=== PATIENT | female | born 1985 | race Caucasian/White ===

== ENCOUNTER 2019-07-01 05:24 | Inpatient (IN) | payer BC, OTHER ==
[2019-07-01] MEDS ORDERED: Lactated Ringers 1,000 ML IV SCH (05:30)
[2019-07-01] MEDS ORDERED: Sodium Chloride 0.9% 10 ML Syringe FLUSH PRN (05:30)
[2019-07-01] MEDS ORDERED: Nalbuphine 10 MG/1 ML Vial IVPUSH PRN (05:30)
[2019-07-01] MEDS ORDERED: Citric Acid/Sodium Citrate Solution 30 ML Cup PO ONE (06:00)
[2019-07-01] MEDS ORDERED: Metoclopramide 10 MG/2 ML SDV IVPUSH ONE (06:00)
[2019-07-01] MEDS ORDERED: ceFAZolin 2 GM in Premix Bag 1 BAG IV ONE (07:15)
--- NOTE | 2019-07-01 07:18 | PCM.PREANE ---
Preanesthetic Assessment - Anesthesia/Transfusion/Family Hx Anesthesia History: Prior Anesthesia Without Reaction Transfusion History: No Prior Transfusion(s) Intubation History: Unknown - Review of Systems General: No Symptoms Pulmonary: Other (sinus congestion) Gastrointestinal: No Symptoms Other: Reports: None - Physical Assessment NPO Status Date: 06/30/19 NPO Status Time: 23:57 Height: 1.73 m Weight: 97.522 kg ASA Class: 2 Mental Status: Alert & Oriented x3 Airway Class: Mallampati = 3 Dentition: Reports: Normal Dentition Thyro-Mental Finger Breadths: 3 Mouth Opening Finger Breadths: 3 ROM/Head Extension: Full Lungs: Clear to Auscultation - Lab Values: Laboratory Last Values WBC 6.97 K/mm3 (3.98-10.04) 07/01/19 05:45 RBC 4.05 M/mm3 (3.98-5.22) 07/01/19 05:45 Hgb 12.3 gm/dl (11.2-15.7) 07/01/19 05:45 Hct 36.6 % (34.1-44.9) 07/01/19 05:45 MCV 90.4 fl (79.4-94.8) 07/01/19 05:45 MCH 30.4 pg (25.6-32.2) 07/01/19 05:45 MCHC 33.6 g/dl (32.2-35.5) 07/01/19 05:45 RDW Std Deviation 45.1 fL (36.4-46.3) 07/01/19 05:45 Plt Count 115 K/mm3 (182-369) L 07/01/19 05:45 MPV 12.2 fl (9.4-12.3) 07/01/19 05:45 Neut % (Auto) 70.3 % (34.0-71.1) 07/01/19 05:45 Lymph % (Auto) 19.7 % (19.3-51.7) 07/01/19 05:45 [place] % (Auto) 8.0 % (4.7-12.5) 07/01/19 05:45 Eos % (Auto) 1.4 (0.7-5.8) 07/01/19 05:45 Baso % (Auto) 0.3 % (0.1-1.2) 07/01/19 05:45 Neut # (Auto) 4.90 K/mm3 (1.56-6.13) 07/01/19 05:45 Lymph # (Auto) 1.37 K/mm3 (1.18-3.74) 07/01/19 05:45 [place] # (Auto) 0.56 K/mm3 (0.24-0.36) H 07/01/19 05:45 Eos # (Auto) 0.10 K/mm3 (0.04-0.36) 07/01/19 05:45 Baso # (Auto) 0.02 K/mm3 (0.01-0.08) 07/01/19 05:45 - Allergies Allergies/Adverse Reactions: Allergies Allergy/AdvReac Type Severity Reaction Status Date / Time No Known Allergies Allergy Verified 07/19/18 09:01 - Blood Blood Available: Yes Product(s) Available: PRBC - Acknowledgements Anesthesia Type Planned: Spinal Pt an Appropriate Candidate for the Planned Anesthesia: Yes Alternatives and Risks of Anesthesia Discussed w Pt/Guardian: Yes Pt/Guardian Understands and Agrees with Anesthesia Plan: Yes PreAnesthesia Questionnaire - Past Surgical History GI Surgical History: Reports: Appendectomy Musculoskeletal Surgical History: Reports: Other (See Below) (cyst removal from leg) - HOME MEDS Home Medications: Home Meds Ascorbic Acid [Vitamin C] 250 mg PO DAILY 07/01/19 [History] Cholecalciferol (Vitamin D3) [Vitamin D3] 1,000 unit PO DAILY 07/01/19 [History] Folic Acid 0.4 mg PO 07/01/19 [History] Magnesium Oxide 250 mg PO 07/01/19 [History] ,Calc.40/Iron/Folate 1 [Pnv-Select] 1 tab PO DAILY 07/01/19 [History] - CURRENT (IN HOUSE) MEDS Current Meds: Current Medications Cefazolin Sodium/Dextrose 2 gm (/ Premix) 50 mls @ 100 mls/hr IV ONETIME ONE Stop: 07/01/19 07:44 Lactated Ringer's (Ringers, Lactated) 1,000 mls @ 125 mls/hr IV ASDIRECTED IVY Oxytocin/Lactated Ringer's (Pitocin In Lr 10 Units/1,000 Ml) 10 unit in 1,000 mls @ 100 mls/hr IV ASDIRECTED IVY; Protocol Nalbuphine HCl (Nubain) 10 mg IVPUSH Q2H PRN PRN Reason: Pain Sodium Chloride (Saline Flush) 10 ml FLUSH ASDIRECTED PRN PRN Reason: Keep Vein Open Discontinued Medications Citric Acid/Sodium Citrate (Bicitra Solution) 30 ml PO ONETIME ONE Stop: 07/01/19 06:01 Last Admin: 07/01/19 06:37 Dose: 30 ml Metoclopramide HCl (Reglan) 10 mg IVPUSH ONETIME ONE Stop: 07/01/19 06:01
--- NOTE | 2019-07-01 07:24 | PCM.OPNOTE ---
- General Post-Op/Procedure Note Date of Surgery/Procedure: 07/01/19 Operative Procedure(s): Repeat Findings: Moderate amount of scar tissue between the fascia and rectus muscles. Minimal scarring between bladder and lower uterine segment, but extremely thin lower uterine segment seen. Would recommend early delivery if has additional . Baby boy in a vertex presentation APGARS of 9 & 9. Weight of 7 lbs 5 oz. Normal appearance otherwise of uterus, fallopian tubes and ovaries. Pre Op Diagnosis: 39 1/7 wks. Hx of x2 Post-Op Diagnosis: Same Anesthesia Technique: Spinal Primary Surgeon: Roselia Leija Secondary Surgeon: Rowena Carolina Anesthesia Provider: Harry Garcia Reason Licensed Optical Dispenser Was Necessary: BMI, speed/safety of procedure Pathology: Cord blood collected. Placenta discarded. Fluid Replacement, Intraop: 2,000 Output, Urine Amount: 200 EBL in mLs: 500 Complications: None Condition: Good Free Text/Narrative:: The risks, benefits, indications, potential complications, and alternatives were explained to the patient and informed consent obtained. After induction of anesthesia, the patient was placed in a supine position and then draped and prepped in the usual sterile manner. A Pfannenstiel incision was made and carried down through the subcutaneous tissue to the fascia. Fascial incision was made and extended transversely. The fascia was from the underlying rectus tissue superiorly and inferiorly. The peritoneum was identified and entered. Peritoneal incision was extended longitudinally. The utero-vesical peritoneal reflection was incised transversely and the bladder flap was bluntly freed from the lower uterine segment. A low transverse uterine incision was made sharply with a scalpel and extended bluntly in a cephalocaudad direction. A baby boy was delivered from a vertex presentation with APGARS as above. After the umbilical cord was clamped and cut cord blood was obtained for evaluation. The placenta was removed intact and appeared normal. The uterus was exteriorized and cleared of clots. The uterine outline, tubes and ovaries appeared normal. The uterine incision was closed with running locked sutures of 0 Vicryl. Hemostasis noted. The uterus was then placed back into the abdomen. The infracolic gutters were cleared of blood clots. The fascia was then reapproximated with running sutures of 0 Vicryl. The subcutaneous tissue was irrigated with sterile warm normal saline, hemostasis obtained with cautery. This layer was also closed with a running 0 vicryl suture. The skin was reapproximated with running Subcuticular 4-0 monocryl sutures. Instrument, sponge, and needle counts were correct prior the abdominal closure and at the conclusion of the case.
[2019-07-01] MEDS ORDERED: Oxytocin/Lactated Ringers 10 UNIT/1,000 ML BAG IV SCH (07:30)
[2019-07-01] MEDS ORDERED: Morphine PF 10 MG/10 ML SDV ONE (07:41)
[2019-07-01] MEDS ORDERED: ceFAZolin 1 GM Vial ONE (08:14)
[2019-07-01] MEDS ORDERED: Oxytocin 10 Units/1 ML SDV ONE ×2 (08:17→08:37)
[2019-07-01] MEDS ORDERED: Lactated Ringers 1,000 ML ONE ×2 (08:26→08:46)
[2019-07-01] MEDS ORDERED: Phenylephrine/Normal Saline 100 MCG/ML 10 ML Syringe ONE (08:30)
[2019-07-01] MEDS ORDERED: Ketorolac 15 MG/ML SDV ONE (08:40)
[2019-07-01] MEDS ORDERED: fentaNYL 100 MCG/2 ML SDV IVPUSH PRN (08:47)
[2019-07-01] MEDS ORDERED: Ondansetron 4 MG/2 ML SDV IVPUSH PRN (08:47)
[2019-07-01] MEDS ORDERED: diphenhydrAMINE 50 MG/ML SDV IVPUSH PRN ×2 (08:47→09:50)
--- NOTE | 2019-07-01 09:11 | PCM.POSTAN ---
POST ANESTHESIA ASSESSMENT - MENTAL STATUS Mental Status: Alert, Oriented - VITAL SIGNS Vital Signs: Last Vital Signs Temp 98.1 F 07/01/19 09:00 Pulse 67 07/01/19 09:00 Resp 11 L 07/01/19 09:00 BP 101/59 L 07/01/19 09:00 Pulse Ox 98 07/01/19 09:00 - RESPIRATORY Respiratory Status: Respiratory Rate WNL, Airway Patent, O2 Saturation Stable - CARDIOVASCULAR CV Status: Pulse Rate WNL, Blood Pressure Stable - GASTROINTESTINAL GI Status: No Symptoms - PAIN Pain Score: 0 (post SAB) - POST OP HYDRATION Hydration Status: Adequate & Stable
[2019-07-01] MEDS ORDERED: Naloxone 0.4 MG/ML SDV IVPUSH PRN (09:50)
[2019-07-01] MEDS ORDERED: ePHEDrine 50 MG/ML SDV IVPUSH PRN (09:50)
[2019-07-01] MEDS ORDERED: Docusate Sodium 100 MG Cap PO PRN (09:50)
[2019-07-01] MEDS ORDERED: Dextrose 5%-Lactated Ringers 1,000 ML IV SCH (09:50)
[2019-07-01] MEDS ORDERED: Sennosides 8.6 MG Tab PO PRN (09:50)
[2019-07-01] MEDS ORDERED: Acetaminophen/oxyCODONE 325-5 MG Tab PO PRN (09:50)
[2019-07-01] MEDS ORDERED: Ondansetron 4 MG/2 ML SDV IV PRN (09:50)
[2019-07-01] MEDS ORDERED: LORazepam 1 MG Tab PO SCH (12:45)
[2019-07-01] MEDS ORDERED: diphenhydrAMINE 25 MG Cap PO PRN (13:49)
[2019-07-01] MEDS: Ketorolac 30 MG/ML SDV IVPUSH SCH ×2 (15:13→20:46)
[2019-07-01] MEDS: hydrOXYzine HCl 50 MG Tab PO PRN (20:46)
[2019-07-02] MEDS: Ketorolac 30 MG/ML SDV IVPUSH SCH (02:33)
[2019-07-02] MEDS: hydrOXYzine HCl 50 MG Tab PO PRN (05:59)
[2019-07-02] MEDS: Ibuprofen 600 MG Tab PO PRN ×2 (11:37→17:52)
--- NOTE | 2019-07-02 11:52 | PCM.PN ---
- General Info Date of Service: 07/02/19 Functional Status: Reports: Pain Controlled - Review of Systems General: Reports: No Symptoms HEENT: Reports: No Symptoms Pulmonary: Reports: No Symptoms Cardiovascular: Reports: No Symptoms Gastrointestinal: Reports: No Symptoms Genitourinary: Reports: No Symptoms Musculoskeletal: Reports: No Symptoms Skin: Reports: No Symptoms Neurological: Reports: No Symptoms Psychiatric: Reports: No Symptoms - Patient Data Vitals - Most Recent: Last Vital Signs Temp 98.1 F 07/02/19 09:56 Pulse 83 07/02/19 09:56 Resp 14 07/02/19 09:56 BP 106/66 07/02/19 09:56 Pulse Ox 96 07/02/19 09:56 Weight - Most Recent: 215 lb I&O - Last 24 Hours: Intake & Output 07/01/19 07/02/19 07/02/19 22:59 06:59 14:59 Intake Total 2360 300 Output Total 3800 3100 500 Balance -1440 -3100 -200 Lab Results Last 24 Hours: Laboratory Results - last 24 hr 07/01/19 07/02/19 Range/Units 05:45 05:45 WBC 7.31 (3.98-10.04) K/mm3 RBC 3.69 L (3.98-5.22) M/mm3 Hgb 11.0 L (11.2-15.7) gm/dl Hct 33.4 L (34.1-44.9) % MCV 90.5 (79.4-94.8) fl MCH 29.8 (25.6-32.2) pg MCHC 32.9 (32.2-35.5) g/dl RDW Std Deviation 44.5 (36.4-46.3) fL Plt Count 96 L (182-369) K/mm3 MPV 12.2 (9.4-12.3) fl RPR Non-reactive (NONREACTIVE) Med Orders - Current: Current Medications Diphenhydramine HCl (Benadryl) 50 mg PO Q6H PRN PRN Reason: Itching Docusate Sodium (Colace) 100 mg PO Q12H PRN PRN Reason: Constipation Last Admin: 07/02/19 09:11 Dose: 100 mg Ephedrine Sulfate (Ephedrine Sulfate) 5 mg IVPUSH SEECOMMENT PRN PRN Reason: Other Hydroxyzine HCl (Atarax) 50 mg PO Q8H PRN PRN Reason: Itching Last Admin: 07/02/19 05:59 Dose: 50 mg Ibuprofen (Motrin) 600 mg PO Q6H PRN PRN Reason: mild pain or fever Last Admin: 07/02/19 11:37 Dose: 600 mg Naloxone HCl (Narcan) 0.1 mg IVPUSH SEECOMMENT PRN PRN Reason: Respiratory Depression Ondansetron HCl (Zofran) 4 mg IV Q8H PRN PRN Reason: Nausea/Vomiting Oxycodone/Acetaminophen (Percocet 325-5 Mg) 2 tab PO Q4H PRN PRN Reason: Pain (severe 7-10) Last Admin: 07/02/19 09:11 Dose: 2 tab Oxycodone/Acetaminophen (Percocet 325-5 Mg) 1 tab PO Q4H PRN PRN Reason: Pain (moderate 4-6) Senna (Senna) 8.6 mg PO BEDTIME PRN PRN Reason: Constipation Discontinued Medications Cefazolin Sodium (Ancef) Confirm Administered Dose 2 gm .ROUTE .STK-MED ONE Stop: 07/01/19 08:15 Citric Acid/Sodium Citrate (Bicitra Solution) 30 ml PO ONETIME ONE Stop: 07/01/19 06:01 Last Admin: 07/01/19 06:37 Dose: 30 ml Diphenhydramine HCl (Benadryl) 25 mg IVPUSH Q6H PRN PRN Reason: Pruritis Last Admin: 07/01/19 11:57 Dose: 25 mg Diphenhydramine HCl (Benadryl) 25 mg IVPUSH Q6H PRN PRN Reason: Itching or Nausea Last Admin: 07/01/19 11:18 Dose: 25 mg Fentanyl (Sublimaze) 50 mcg IVPUSH Q5M PRN PRN Reason: Pain Cefazolin Sodium/Dextrose 2 gm (/ Premix) 50 mls @ 100 mls/hr IV ONETIME ONE Stop: 07/01/19 07:44 Last Admin: 07/01/19 13:37 Dose: Not Given Lactated Ringer's (Ringers, Lactated) 1,000 mls @ 125 mls/hr IV ASDIRECTED [facility] Last Admin: 07/01/19 07:15 Dose: 999 mls/hr Oxytocin/Lactated Ringer's (Pitocin In Lr 10 Units/1,000 Ml) 10 unit in 1,000 mls @ 100 mls/hr IV ASDIRECTED IVY; Protocol Lactated Ringer's (Ringers, Lactated) Confirm Administered Dose 1,000 mls @ as directed .ROUTE .STK-MED ONE Stop: 07/01/19 08:27 Lactated Ringer's (Ringers, Lactated) Confirm Administered Dose 1,000 mls @ as directed .ROUTE .STK-MED ONE Stop: 07/01/19 08:47 Dextrose/Lactated Ringer's (Dextrose 5%-Lactated Ringers) 1,000 mls @ 125 mls/ hr IV ASDIRECTED [facility] Stop: 07/01/19 17:49 Last Admin: 07/01/19 11:26 Dose: 125 mls/hr Ketorolac Tromethamine (Toradol) Confirm Administered Dose 15 mg .ROUTE .ST- MED ONE Stop: 07/01/19 08:41 Ketorolac Tromethamine (Toradol) 30 mg IVPUSH Q6H [facility] Stop: 07/02/19 02:46 Last Admin: 07/02/19 02:33 Dose: 30 mg Lorazepam (Ativan) 1 mg PO .ONETIME [facility] Stop: 07/01/19 14:00 Last Admin: 07/01/19 12:51 Dose: 1 mg Metoclopramide HCl (Reglan) 10 mg IVPUSH ONETIME ONE Stop: 07/01/19 06:01 Last Admin: 07/01/19 07:45 Dose: 10 mg Morphine Sulfate (Duramorph Pf) Confirm Administered Dose 10 mg .ROUTE .STK-MED ONE Stop: 07/01/19 07:42 Nalbuphine HCl (Nubain) 10 mg IVPUSH Q2H PRN PRN Reason: Pain Ondansetron HCl (Zofran) 4 mg IVPUSH ONETIME PRN PRN Reason: Nausea/Vomiting Oxytocin (Pitocin) Confirm Administered Dose 10 unit .ROUTE .STK-MED ONE Stop: 07/01/19 08:18 Oxytocin (Pitocin) Confirm Administered Dose 10 unit .ROUTE .ST-MED ONE Stop: 07/01/19 08:38 Phenylephrine HCl (Phenylephrine In Ns 100 Mcg/Ml) Confirm Administered Dose 1 mg .ROUTE .STK-MED ONE Stop: 07/01/19 08:31 Sodium Chloride (Saline Flush) 10 ml FLUSH ASDIRECTED PRN PRN Reason: Keep Vein Open - Exam General: Alert, Oriented HEENT: Mucous Membr. Moist/[place] Neck: Supple Lungs: Clear to Auscultation, Normal Respiratory Effort Cardiovascular: Regular Rate, Regular Rhythm GI/Abdominal Exam: Normal Bowel Sounds, Soft, Non-Tender, No Distention Extremities: Normal Inspection, Non-Tender, No Pedal Edema, Normal Capillary Refill Skin: Warm, Dry, Intact Wound/Incisions: Healing Well, Dressing Dry and Intact (removed), No Drainage Psy/Mental Status: Alert, Normal Affect, Normal Mood - Problem List & Annotations (1) delivery, delivered, current hospitalization SNOMED Code(s): 622189663 Code(s): O82 - ENCOUNTER FOR DELIVERY WITHOUT INDICATION Status: Acute Current Visit: Yes (2) 39 weeks gestation of SNOMED Code(s): 07894779 Code(s): Z3A.39 - 39 WEEKS GESTATION OF Status: Acute Current Visit: Yes - Problem List Review Problem List Initiated/Reviewed/Updated: No - My Orders Last 24 Hours: My Active Orders 07/01/19 18:01 hydrOXYzine HCl [Atarax] 50 mg PO Q8H PRN - Plan Plan:: Doing well this morning first a postop.
--- NOTE | 2019-07-02 14:26 | PCM48HPAN ---
Post Anesthesia Note - EVALUATION WITHIN 48HRS OF ANESTHETIC Vital Signs in Normal Range: Yes Patient Participated in Evaluation: Yes Respiratory Function Stable: Yes Airway Patent: Yes Cardiovascular Function Stable: Yes Hydration Status Stable: Yes Pain Control Satisfactory: Yes Nausea and Vomiting Control Satisfactory: Yes Mental Status Recovered: Yes Vital Signs: Last Vital Signs Temp 36.7 C 07/02/19 09:56 Pulse 83 07/02/19 09:56 Resp 14 07/02/19 09:56 BP 106/66 07/02/19 09:56 Pulse Ox 96 07/02/19 09:56 - COMMENTS/OBSERVATIONS Free Text/Narrative:: Patient had some very intense itching post-delivery, post spinal. RNs treated with benadryl and vistaril. Recommended using Nubain next time. Anyhow, patient is doing well today. No itching. No pain. No questions or concerns when asked. She had even forgotten about the itching until I brought it up.
[2019-07-02] MEDS: Acetaminophen/oxyCODONE 325-5 MG Tab PO PRN ×2 (14:34→20:26)
[2019-07-03] MEDS: Acetaminophen/oxyCODONE 325-5 MG Tab PO PRN ×4 (01:43→19:58)
[2019-07-03] MEDS: Ibuprofen 600 MG Tab PO PRN ×3 (03:21→18:35)
--- NOTE | 2019-07-03 11:49 | PCM.SN ---
- Free Text/Narrative Note: Second day postop. Patient is doing well incision appears normal. Uterus involuting normally. No leg cramping. No heavy vaginal bleeding. No cough or chest congestion. Patient will probably be able be dismissed tomorrow.
[2019-07-04] MEDS: Acetaminophen/oxyCODONE 325-5 MG Tab PO PRN (02:19)
[2019-07-04] MEDS: Ibuprofen 600 MG Tab PO PRN (05:24)
--- NOTE | 2019-07-04 06:51 | PCM.DCSUM1 ---
Discharge Summary - Discharge Data Discharge Date: 07/04/19 Discharge Disposition: Home, Self-Care 01 Condition: Good - Referral to Home Health Primary Care Physician: ESTEBAN Parham - Patient Summary/Data Operative Procedure(s) Performed: Repeat Complications: None Consults: None Recommended Follow-up Testing/Procedures: Follow up in 1 week for incision check Hospital Course: 34 y/o at 39 1/7 wks was admitted for planned RLTCS. Surgery was uncomplicated. See delivery note. course was uncomplicated. She was discharged home on POD#3 - Patient Instructions Diet: Regular Diet as Tolerated Activity: No Lifting Over 10 Pounds Activity, Other: Pelvic Rest for 6 weeks Driving: Do Not Drive (While taking narcotics ) Showering/Bathing: May Shower, No Tub Bathing/Swimming Wound/Incision Care: Keep Operative Site/Wound Site Clean and Dry Notify Provider of: Fever, Increased Pain, Swelling and Redness, Drainage, Nausea and/or Vomiting - Discharge Plan *PRESCRIPTION DRUG MONITORING PROGRAM REVIEWED*: No *COPY OF PRESCRIPTION DRUG MONITORING REPORT IN PATIENT SAHARA: No Prescriptions/Med Rec: Acetaminophen/oxyCODONE [Percocet 325-5 MG] 1 - 2 tab PO Q6H PRN #20 tablet PRN Reason: Pain (Moderate 4-6) Home Medications: Home Meds Cholecalciferol (Vitamin D3) [Vitamin D3] 1,000 unit PO DAILY 07/01/19 [History] ,Calc.40/Iron/Folate 1 [Pnv-Select] 1 tab PO DAILY 07/01/19 [History] Acetaminophen/oxyCODONE [Percocet 325-5 MG] 1 - 2 tab PO Q6H PRN #20 tablet 08/21 [Rx] Ibuprofen [Motrin] 600 mg PO Q6H PRN tablet 07/03/19 [Rx] Referrals: Roselia Leija MD [Physician] - (1 week for incision check) - Discharge Summary/Plan Comment DC Time >30 min.: No - Patient Data Vitals - Most Recent: Last Vital Signs Temp 36.5 C 07/04/19 05:27 Pulse 76 07/04/19 05:27 Resp 14 07/04/19 05:27 BP 117/84 07/04/19 05:27 Pulse Ox 97 07/04/19 05:27 Weight - Most Recent: 97.522 kg I&O - Last 24 hours: Intake & Output 07/03/19 07/03/19 07/04/19 14:59 22:59 06:59 Intake Total 240 240 Balance 240 240 Med Orders - Current: Current Medications Diphenhydramine HCl (Benadryl) 50 mg PO Q6H PRN PRN Reason: Itching Docusate Sodium (Colace) 100 mg PO Q12H PRN PRN Reason: Constipation Last Admin: 07/02/19 09:11 Dose: 100 mg Ephedrine Sulfate (Ephedrine Sulfate) 5 mg IVPUSH SEECOMMENT PRN PRN Reason: Other Hydroxyzine HCl (Atarax) 50 mg PO Q8H PRN PRN Reason: Itching Last Admin: 07/02/19 05:59 Dose: 50 mg Ibuprofen (Motrin) 600 mg PO Q6H PRN PRN Reason: mild pain or fever Last Admin: 07/04/19 05:24 Dose: 600 mg Naloxone HCl (Narcan) 0.1 mg IVPUSH SEECOMMENT PRN PRN Reason: Respiratory Depression Ondansetron HCl (Zofran) 4 mg IV Q8H PRN PRN Reason: Nausea/Vomiting Oxycodone/Acetaminophen (Percocet 325-5 Mg) 2 tab PO Q4H PRN PRN Reason: Pain (severe 7-10) Last Admin: 07/02/19 09:11 Dose: 2 tab Oxycodone/Acetaminophen (Percocet 325-5 Mg) 1 tab PO Q4H PRN PRN Reason: Pain (moderate 4-6) Last Admin: 07/04/19 02:19 Dose: 1 tab Senna (Senna) 8.6 mg PO BEDTIME PRN PRN Reason: Constipation Discontinued Medications Cefazolin Sodium (Ancef) Confirm Administered Dose 2 gm .ROUTE .STK-MED ONE Stop: 07/01/19 08:15 Citric Acid/Sodium Citrate (Bicitra Solution) 30 ml PO ONETIME ONE Stop: 07/01/19 06:01 Last Admin: 07/01/19 06:37 Dose: 30 ml Diphenhydramine HCl (Benadryl) 25 mg IVPUSH Q6H PRN PRN Reason: Pruritis Last Admin: 07/01/19 11:57 Dose: 25 mg Diphenhydramine HCl (Benadryl) 25 mg IVPUSH Q6H PRN PRN Reason: Itching or Nausea Last Admin: 07/01/19 11:18 Dose: 25 mg Fentanyl (Sublimaze) 50 mcg IVPUSH Q5M PRN PRN Reason: Pain Cefazolin Sodium/Dextrose 2 gm (/ Premix) 50 mls @ 100 mls/hr IV ONETIME ONE Stop: 07/01/19 07:44 Last Admin: 07/01/19 13:37 Dose: Not Given Lactated Ringer's (Ringers, Lactated) 1,000 mls @ 125 mls/hr IV ASDIRECTED [facility] Last Admin: 07/01/19 07:15 Dose: 999 mls/hr Oxytocin/Lactated Ringer's (Pitocin In Lr 10 Units/1,000 Ml) 10 unit in 1,000 mls @ 100 mls/hr IV ASDIRECTED [facility]; Protocol Lactated Ringer's (Ringers, Lactated) Confirm Administered Dose 1,000 mls @ as directed .ROUTE .STK-MED ONE Stop: 07/01/19 08:27 Lactated Ringer's (Ringers, Lactated) Confirm Administered Dose 1,000 mls @ as directed .ROUTE .STK-MED ONE Stop: 07/01/19 08:47 Dextrose/Lactated Ringer's (Dextrose 5%-Lactated Ringers) 1,000 mls @ 125 mls/ hr IV ASDIRECTED [facility] Stop: 07/01/19 17:49 Last Admin: 07/01/19 11:26 Dose: 125 mls/hr Ketorolac Tromethamine (Toradol) Confirm Administered Dose 15 mg .ROUTE .STK- MED ONE Stop: 07/01/19 08:41 Ketorolac Tromethamine (Toradol) 30 mg IVPUSH Q6H IV[facility] Stop: 07/02/19 02:46 Last Admin: 07/02/19 02:33 Dose: 30 mg Lorazepam (Ativan) 1 mg PO .ONETIME [facility] Stop: 07/01/19 14:00 Last Admin: 07/01/19 12:51 Dose: 1 mg Metoclopramide HCl (Reglan) 10 mg IVPUSH ONETIME ONE Stop: 07/01/19 06:01 Last Admin: 07/01/19 07:45 Dose: 10 mg Morphine Sulfate (Duramorph Pf) Confirm Administered Dose 10 mg .ROUTE .STK-MED ONE Stop: 07/01/19 07:42 Nalbuphine HCl (Nubain) 10 mg IVPUSH Q2H PRN PRN Reason: Pain Ondansetron HCl (Zofran) 4 mg IVPUSH ONETIME PRN PRN Reason: Nausea/Vomiting Oxytocin (Pitocin) Confirm Administered Dose 10 unit .ROUTE .STK-MED ONE Stop: 07/01/19 08:18 Oxytocin (Pitocin) Confirm Administered Dose 10 unit .ROUTE .STK-MED ONE Stop: 07/01/19 08:38 Phenylephrine HCl (Phenylephrine In Ns 100 Mcg/Ml) Confirm Administered Dose 1 mg .ROUTE .STK-MED ONE Stop: 07/01/19 08:31 Sodium Chloride (Saline Flush) 10 ml FLUSH ASDIRECTED PRN PRN Reason: Keep Vein Open
== END 2019-07-04 10:43 | disposition home or self-care (01) | DRG 540 ==
LOC: JD.OB 05:24
PROVIDERS: ADMIT Obstetrics & Gynecology; ATTEND Obstetrics & Gynecology
PROC: 10D00Z1 Extraction of Products of Conception, Low, Open Approach (ICD-10-PCS; principal; 2019-07-01)
DX: O34.211 Maternal care for low transverse scar from previous cesarean delivery (principal); Z37.0 Single live birth; Z3A.39 39 weeks gestation of pregnancy; O99.73 Diseases of the skin and subcutaneous tissue complicating the puerperium; L29.9 Pruritus, unspecified; Z90.49 Acquired absence of other specified parts of digestive tract; Z79.899 Other long term (current) drug therapy
CPT/HCPCS: 01961; 36415; 59025; 85025; 85027; 86592; 86850; 86900; 86901; 94762; A9270-GY; J0690; J1200; J1885; J2270; J2370; J2590; J2765; J7042; J7120